=== PATIENT | female | born 1970 | race Caucasian/White ===

== ENCOUNTER 2016-06-08 11:49 | Emergency (ER) | payer MEDICARE ==
[~2016-06-08] VITALS: Ht 168.9 cm; Wt 91.6 kg
[~2016-06-08 11:49] MED LIST: ACET-2321 PO; AMAN100C65 PO; AMIT50TA95 PO; ARMO150T5 PO; ASPI-917 PO; BACL20TA71 PO; CYAN100T PO; FERR-67 PO; FOLI0.4T2 PO; MECL-38 PO; OXYC5TAB84 PO; PANT40TA32 PO; POLY17PO18 PO; SERT-77 PO; SUCR1TAB20 PO; TIZA4CAP PO; [UNRECOGNIZED DRUG - CODE] PO; [UNRECOGNIZED DRUG - CODE] PO; [UNRECOGNIZED DRUG - OTHER]; [UNRECOGNIZED DRUG - REMARK] PO
[2016-06-08 11:50] VITALS: Ht 168.9 cm; Wt 91.6 kg
--- OUTSIDE RECORDS SUMMARY | 2016-06-08 11:56 | XMS REPORT | Continuity of Care Document ---
Author Author [facility] Organization [facility] Address Unknown Phone Unavailable Care Team Providers Care Mold Stripper Name Role Phone WOJCIECH LEMONS DO Primary Care Physician [phone] Insurance Providers Guarantor Daisy Nur Address [address] [place] [address] C Email [email or web address] [facility] Policy Number [id number] Subscriber's Name Daisy Nur Relationship 18 Self Group Number [id number] Effective Date 07 Advance Directives Directive Response Recorded Date/Time Ordered Resuscitation Status Full Code 07/29/15 1:17pm Resuscitation Documents on File No 07/30/15 6:48am DPOA for Healthcare Only No 07/30/15 6:48am Problems Active Problems Medical Problem Onset Date Status Degenerative arthritis of right knee Unknown Chronic Depression Unknown Multiple sclerosis Unknown Obesity (BMI 30-39.9) Unknown Vertigo Unknown Medications Current Home Medications Medication Dose Units Route Directions Days Qty Instructions Start Date Acetaminophen (Tylenol) 325 Mg Tablet 650 Mg Oral Four Times Daily as needed for Pain 100 Tablet 07/31/15 Amantadine Hcl (Amantadine) 100 Mg Capsule 100 Mg Oral Twice A Day 08/10/08 Amitriptyline Hcl 50 Mg Tablet 50 Mg Oral Bedtime 02/19/11 Armodafinil (Nuvigil) 150 Mg Tablet 1 Tab Oral Daily 04/23/15 Aspirin (Aspirin Ec) 325 Mg Tablet. 325 Mg Oral Twice A Day 84 Tablet Take for DVT prevention 07/31/15 Baclofen 20 Mg Tablet 20 Mg Oral Bedtime 12/19/10 Caffeine 200 Mg Tablet 1 Tab Oral 112907/23/15 Carb Control Daily 07/23/15 Cyanocobalamin (Vitamin B-12) 100 Mcg Tablet 1 Tab Oral 12/28 Ferrous Sulfate (Iron Supplement) 325 Mg Tablet 1 Tab Oral Three Times A Day 04/24/15 Fingolimod Hcl (Gilenya) 0.5 Mg Capsule 0.5 Mg Oral Daily Folic Acid 0.4 Mg Tablet 1 Tab Oral 112907/23/15 Meclizine Hcl 25 Mg Tablet 25 Mg Oral Three Times A Day 08/10/08 Oxycodone Hcl 5 Mg Tablet 5-15 Mg Oral Every 3 Hours as needed for Breakthrough Pain 60 Tablet 07/31/15 Pantoprazole Sodium (Protonix) 40 Mg Tablet.dr 40 Mg Oral Daily 12/19/10 Polyethylene Glycol 3350 (Healthylax) 17 Gm Powd.pack 17 Gm Oral Daily 30 Packet 07/31/15 Sertraline Hcl (Zoloft) 100 Mg Tablet 150 Mg Oral Daily 02/19/11 Sucralfate (Carafate) 1 Gm Tablet 1 G Oral Before Meals And At Bedtime Take 1 tablet, by mouth, 4 times a day (Before EACH meal and at BEDTIME). 07/23/15 Tizanidine Hcl (Zanaflex) 4 Mg Capsule 1 Cap Oral Three Times A Day 07/23/15 Zero For Life Daily 07/23/15 Past Home Medications Medication Directions Ordered Status Acetaminophen (Tylenol Extra Strength) 500 Mg Tablet, 500 Mg Oral As Needed 08/10/08 Discontinued Amitriptyline Hcl 100 Mg Tablet, 100 Mg Oral Daily 08/10/08 Discontinued Cyclobenzaprine Hcl (Amrix) 15 Mg Cap.sr.24h, 15 Mg Oral As Needed 08/10/08 Discontinued Hydrocodone Bit/Acetaminophen (Lortab 7.5-500 Tablet) 1 Tab Tablet, 1 Tab Oral As Needed 08/10/08 Discontinued Ibuprofen 200 Mg Tablet, 200 Mg Oral As Needed 08/09/08 Discontinued Interferon Beta-1A (Avonex) 30 Mcg/0.5 Ml/Kit Syringe, 30 Mcg Intramusc Q Week 08/10/08 Discontinued Isomethept/Acetaminop/Dichlphn (Midrin) 1 Cap Capsule, 1 Cap Oral As Needed 08/10/08 Discontinued Lansoprazole (Prevacid) 30 Mg Capsule.dr, 30 Mg Oral Daily 08/10/08 Discontinued Metaxalone (Skelaxin) 800 Mg Tablet, 800 Mg Oral Daily 08/10/08 Discontinued [place]-3 Fatty Acids (Fish Oil) 500 Mg Capsule, 500 Mg Oral Daily 08/09/08 Discontinued Sertraline Hcl (Zoloft) 100 Mg Tablet, 100 Mg Oral Daily 08/10/08 Discontinued Solifenacin (Vesicare) 10 Mg Tablet, 10 Mg Oral Daily 12/19/10 Discontinued Social History Social History Problem Response Recorded Date/Time Onset Date Status Chewing Tobacco Status No 07/30/2015 6:55am Not Applicable Not Applicable Hx Substance Use No 07/30/2015 6:55am Not Applicable Not Applicable Hx Alcohol Use No 07/30/2015 6:55am Not Applicable Not Applicable Has the pt used tobacco in the last 12 months No 07/30/2015 6:55am Not Applicable Not Applicable Query Response Start Date Stop Date Smoking Status Former smoker Hospital Discharge Instructions Instructions: Care Instructions: Reason for Hospitalization: Right TKA I was in the hospital because (patient own words): knee replacement Discharge Diet: regular Discharge Activity: WBAT Follow Up Appointments: DR CHEEMA 6-8-16 @1:30PM [facility] ON 08/02/2015 AT 10:45AM FOR PHYSICAL THERAPY [facility]. PHONE [phone] Pending Lab / Results: No Pending Lab Condition at time of discharge: Good Plan of Care Discharge Date 07/31/15 4:55pm Disposition 01 DISCHARGED HOME, SELF-CARE Instructions[place] [facility] [place] Prescriptions See Medication Section Care Plan and Goals See Discharge Instructions Section Functional Status Query Response Date Recorded Mobility Status Ambulatory w/assist July 31, 2015 2:02pm Assistive Devices Front Wheeled Walker July 31, 2015 2:02pm Activity Limitations Weakness Pain July 31, 2015 2:02pm Feeding Ability Independent July 31, 2015 2:02pm Toileting Ability Independent July 31, 2015 2:02pm Grooming Ability Independent July 31, 2015 2:02pm Dressing Ability Independent July 31, 2015 2:02pm Driving Ability Independent July 31, 2015 2:02pm Housework Ability Independent July 31, 2015 2:02pm Meal Preparation Ability Independent July 31, 2015 2:02pm Stair Climbing Ability Independent July 31, 2015 2:02pm Ability to complete ADL's impeded by Impaired Mobility Change in Cognition July 31, 2015 2:02pm Cognitive/Perceptual Impairments Impaired vision July 31, 2015 2:02pm Visual Assistive Devices Glasses With patient July 30, 2015 2:52pm Preferred Method of Learning Hands on July 30, 2015 2:52pm Allergies, Adverse Reactions, Alerts Allergen Type Severity Reaction Status Last Updated Niacin Allergy Unknown HIVES Active 07/23/15 Interferon beta-1b Allergy Unknown HIVES Active 11/30/12 Immunizations Query Response on File Recorded Date/Time Hx Influenza Vaccination Y fall 201407/30/15 6:55am Hx Pneumococcal Vaccination Y 201407/30/15 6:55am Hx Influenza Vaccination Y fall 201407/30/15 6:55am Influenza Vaccine Hx fall 201507/30/15 4:02pm Vital Signs Acute Vital Signs Vital Response Date/Time Temperature (Fahrenheit) 97.2 deg F (96.8 - 99.1) 07/31/2015 12:03pm Temperature (Calculated Celsius) 36.22454 degrees C (36.0 - 37.3) 07/31/2015 12:03pm Temperature Source Temporal 07/30/2015 12:50pm Pulse Rate (adult) 86 bpm (60 - 100) 07/31/2015 12:03pm Respiratory Rate 14 breaths/min (10 - 20) 07/31/2015 12:03pm O2 Sat by Pulse Oximetry 98 % (90 - 100) 07/31/2015 12:03pm Oxygen Delivery Method Room Air 07/30/2015 4:35pm Oxygen Delivery Method Room Air 07/31/2015 12:03pm Oxygen Flow Rate 1.00 L/min 07/30/2015 12:20pm Blood Pressure 137/87 mm Hg 07/31/2015 12:03pm Blood Pressure Source Automatic Cuff 07/31/2015 12:03pm Height (Feet) 5 feet 07/31/2015 8:36am Height (Inches) 6.00 inches 07/31/2015 8:36am Weight (Kilograms) 91.500 kg 07/31/2015 8:55am Body Mass Index (BMI) 30.8 07/30/2015 6:42am Results Laboratory Results Test Name Result Units Flags Reference Collection Date/Time Result Date/ Time Comments White Blood Count 6.5 T/MM3 D 4.5-11.0 07/31/2015 4:07/31/2015 5: 05am Red Blood Count 3.88 M/MM3 L 4.00-5.20 07/31/2015 4:07/31/2015 5: 05am Hemoglobin 12.4 GM/DL 12-16 07/31/2015 4:07/31/2015 5:05am Hematocrit 37.3 % 36-46 07/31/2015 4:07/31/2015 5:05am Mean Corpuscular Volume 96.1 UM3 80-100 07/31/2015 4:07/31/2015 5: 05am Mean Corpuscular Hemoglobin 32.0 UUG 26-34 07/31/2015 4:2015 5:05am Mean Corpuscular Hemoglobin Concent 33.2 GM/DL 31-37 07/31/2015 4:07/31/2015 5:05am RDW Standard Deviation 42.6 FL 36.9-50.2 07/31/2015 4:07/31/2015 5 :05am Platelet Count 209 T/MM3 130-400 07/31/2015 4:07/31/2015 5:05am Mean Platelet Volume 9.9 UM3 9.4-12.4 07/31/2015 4:07/31/2015 5: 05am Neutrophils (%) (Auto) 74.2 % H 33-66 07/30/2015 6:5807/30/2015 7: 11am Lymphocytes (%) (Auto) 12.4 % L 23-45 07/30/2015 6:5807/30/2015 7: 11am Monocytes (%) (Auto) 10.9 % H 0-9.0 07/30/2015 6:5807/30/2015 7:11am Eosinophils (%) (Auto) 1.9 % 0-4 07/30/2015 6:5807/30/2015 7:11am Basophils (%) (Auto) 0.3 % 0-2 07/30/2015 6:58am 07/30/2015 7:11am Immature Granulocyte % (Auto) 0.3 % 0.0-0.5 07/30/2015 6:58am 2015 7:11am Absolute Neutrophils (auto) 2.4 T/MM3 1.8-7.7 07/30/2015 6:58am 2015 7:11am Absolute Lymphocytes (auto) 0.4 T/MM3 L 1-4.8 07/30/2015 6:58am 2015 7:11am Absolute Monocytes (auto) 0.4 T/MM3 0-0.8 07/30/2015 6:58am 07/30/2015 7:11am Absolute Eosinophils (auto) 0.1 T/MM3 0-0.5 07/30/2015 6:58am 2015 7:11am Absolute Basophils (auto) 0.0 T/MM3 0-0.2 07/30/2015 6:58am 07/30/2015 7:11am Absolute Immature Granulocyte (auto 0.01 T/MM3 0.00-0.03 07/30/2015 6: 58am 07/30/2015 7:11am Icterus Index < 2 0-7 07/31/2015 4:07/31/2015 5:03am Chemistry Specimen Hemolysis < 15 0-25 07/31/2015 4:07/31/2015 5 :03am 0-25: Specimen Exhibited No Hemolysis. Turbidity < 20 0-20 07/31/2015 4:07/31/2015 5:03am Sodium Level 141 MEQ/L 134-144 07/31/2015 4:07/31/2015 5:03am Potassium Level 3.4 MEQ/L L 3.6-5 07/31/2015 4:07/31/2015 5:03am Chloride Level 105 MEQ/L 98-107 07/31/2015 4:07/31/2015 5:03am Carbon Dioxide Level 27 MEQ/L 22-30 07/31/2015 4:07/31/2015 5: 03am Anion Gap 9 MEQ/L 5-15 07/31/2015 4:07/31/2015 5:03am Blood Urea Nitrogen 11.0 MG/DL 7-17 07/31/2015 4:07/31/2015 5: 03am Creatinine 0.6 MG/DL L 0.7-1.2 07/31/2015 4:07/31/2015 5:03am BUN/Creatinine Ratio 18 RATIO 6-26 07/31/2015 4:21am 07/31/2015 5:03am Glomerular Filtration Rate Calc 108 07/31/2015 4:21am 07/31/2015 5: 03am Glucose Level 101 MG/DL 65-110 07/31/2015 4:21am 07/31/2015 5:03am Calculated Osmolality 270 MOSM/KG 261-280 07/31/2015 4:21am 07/31/2015 5:03am Calcium Level 8.7 MG/DL 8.4-10.2 07/31/2015 4:21am 07/31/2015 5:04am Name: DAISY NUR Unit #: [id number] : 1970 Sex: F Admit Date: 07/30/15 Loc / Svc: SRG Discharge Date: DIAGNOSTIC IMAGING REPORT Report #: [id number] [place], [place] Indication: ITS.REASON: POSTOP right knee replacement PROCEDURE: KNEE RIGHT 2 VIEW: Encounter: Initial Comparison: Right knee radiographs dated December 04, 2011 Findings: Postoperative changes of right total knee replacement are seen. There is expected postoperative subcutaneous gas. No evidence of hardware failure or acute fracture. No retained radiopaque surgical instruments or sponges. Overlying material causing artifact. Impression: New right total knee prosthesis without evidence of immediate complication. . Procedures Procedure Status Date Provider(s) CHEST X-RAY 2VW FRONTAL&LATL Completed 07/10/15 Total replacement of right knee joint Completed 07/30/15 KILLIAN CHEEMA MD Encounters Encounter Location Arrival/Admit Date Discharge/Depart Date Attending Provider Discharged Inpatient [facility] 07/30/15 6:28am 07/31/15 4:55pm KILLIAN CHEEMA MD Registered Clinic [facility] 07/10/15 2:50pm WOJCIECH LEMONS DO
--- NOTE | 2016-06-08 12:30 | NUR ---
PROVIDER DR Bernice ARRINGTON IN TO SEE PATIENT.
[2016-06-08] MEDS ORDERED: GARL500T PO (12:35)
[2016-06-08] MEDS ORDERED: ASCO10007 PO (12:35)
[2016-06-08] MEDS ORDERED: [UNRECOGNIZED DRUG - OTHER] PO (12:35)
--- NOTE | 2016-06-08 12:36 | ERPDOC ---
Departure Disposition Decision Date: Jun 08, 2016 Disposition Decision Time: 13:08 (JEAN BARROW APRN) Disposition: 01 DISCHARGED HOME, SELF-CARE Impression Impression (JEAN BARROW APRN) Impression: Primary Impression: Displaced fracture of phalanx of right little finger Encounter type: initial encounter Fracture type: closed Phalanx: proximal Qualified Codes: S62.616A - Displaced fracture of proximal phalanx of right little finger, initial encounter for closed fracture Severity: Moderate (JEAN BARROW APRN) Condition: Stable Seen By: Mid-level only (JEAN BARROW APRN) Seen By: Physician and Mid-level (PRINCE ARRINGTON MD) Referrals: WOJCIECH LEMONS DO (Family) Patient Instructions: Finger Fracture (ED) Problems/Meds/Labs Reviewed?: Yes Medications reviewed and manag: Yes (JEAN BARROW APRN) Additional Instructions: Keep the finger splint on and continue to devyn tape your finger until you follow up with Dr Bell on WednesdayJune 10 at 11:00 am. Ice and elevate the fingers. May use Tylenol and/or Motrin as needed for mild pain or the [place] as needed for severe pain. Follow up care ordered?: Yes Mental Status: Alert (JEAN BARROW APRN) Scripts Hydrocodone/Acetaminophen ([place] 5-325 Tablet) 5-325 Tablet 1 TAB PO Q6H Y for PAIN, #10 TAB 0 Refills Prov: JEAN BARROW APRN 06/08/16 HPI General Chief Complaint: Lower Extremity Injury Stated Complaint: POSS BROKEN FINGERS/HAND ( RIGHT) Time Seen by Provider: 12:30 Source: patient Exam Limitations: no limitations (JEAN BARROW APRN) Time Seen by Provider: 12:30 (PRINCE ARRINGTON MD) HPI Hand/Forearm Initial Comments She fell this morning and hyperflexed the right 4th and 5th fingers at the MCP joint on the right hand. She has pain and bruising on the right 4th and 5th MCP joints. She denies any numbness/tingling in the right finger tips. No history of injury. Has devyn taped her 4th and 5th digits together. Occurred At: home Onset: Rapid Duration: 1-3 hrs Severity: moderate Location: right: 4th finger, 5th finger, hand 1 - area of pain 2 - area of pain Method of Injury: fell Associated Symptoms: pain with extension, pain with flexion, pain with grasp, DENIES: bruising, numbness, pallor, red streaks, redness, swelling, weakness ( NOLD,JEAN N GRADER OPERATOR) Allergies: Coded Allergies: interferon beta-1b (Verified Allergy, Unknown, HIVES, 06/08/16) niacin (Unverified Allergy, Unknown, HIVES, 06/08/16) PER H&P DATED 07/09/15 Past History Past Medical History Female: kidney stones Neurological: multiple sclerosis Hematologic: anemia Psychological: depression (NOLD,JEAN N GRADER OPERATOR) Surgical History General: EGD, tonsils Reproductive/: tubal ligation Joint: knee (NOLD,JEAN N GRADER OPERATOR) Family History Family History: Negative (NOLD,JEAN N GRADER OPERATOR) Vaccines Hx Influenza Vaccination: Yes (FALL 2014) Hx Pneumococcal Vaccination: Yes (2014) (NOLD,JEAN N GRADER OPERATOR) Social History # of Packs/Tins per Day: 1 # of Years: 20 IV Drug Use: No (NOLD,JEAN N GRADER OPERATOR) Review of Systems Constitutional Constitutional: DENIES: chills, dizziness, fatigue, fever, weakness (NOLD, JEAN N GRADER OPERATOR) Musculoskeletal General: pain (right 4th and 5th fingers and right 4th and 5th MCP joints) ( NOLD,JEAN N GRADER OPERATOR) Integumentary Skin: DENIES: rash (NOLD,JEAN N GRADER OPERATOR) Neurological General: DENIES: headache, numbness, tingling, weakness (NOLD,JEAN N GRADER OPERATOR) Exam General General Nourishment: well nourished, well developed, appears stated age, no acute distress, adult General Body Habitus: well groomed Vital Signs: RN Vital Signs have been reviewed: Yes, Temperature: 97.8, Source : Oral, Heart Rate: 83, Respiratory Rate: 18, BP: 134/87, Pulse Oximetry: 98 Height (Feet): 5 Height (Inches): 6.50 (NOLD,JEAN N GRADER OPERATOR) Fastrak Hand/Forearm Hand/Forearm : Upper Extremity: Right Elbow: extension intact, flexion intact, NOT FOUND: deformity, ecchymosis, erythema, swelling, tender Forearm: pronation intact, supination intact, NOT FOUND: deformity, ecchymosis, erythema, laceration, swelling, tender Wrist: ROM intact, NOT FOUND: deformity, ecchymosis, erythema, snuff box tenderness, swelling, tender, thenar eminence tender Hand: ecchymosis (on palmar surface of the right hand over the 4th and 5th MCP joint), swelling (4th and 5th fingers), tender (MCP joints-4th and 5th, and 4th and 5th fingers), NOT FOUND: deformity, erythema Fingers: cap refill <2sec ea digit, ecchymosis (4th and 5th digits), impaired abduction, impaired adduction, impaired flexion, impaired grasp, soft touch intact, swelling, tender, NOT FOUND: deformity, erythema, impaired extension, laceration, nail avulsion, rotational deformity Radial Pulse: 2+ (JEAN BARROW APRN) Hand/Forearm : Comments right hand -- pt has 4th and 5th fingers devyn taped. There is swelling and ecchymosis of the proximal 4th/5th fingers extending up onto the distal hand. (PRINCE ARRINGTON MD) Neurologic RN Documented GCS Eye Opening: Verbal: Motor: Total: (JEAN BARROW APRN) Differential Diagnoses Considering: Contusion, Dislocation, Fracture, Sprain, Strain (JEAN BARROW APRN) Procedures Splinting Procedure Splint : Site: right pinky finger Pre-placement NV: FOUND: cap refill < 3 sec, good movement, good sensation Pre-Made Type: metal Splint: volar aluminum finger splint Post-placement NV: FOUND: cap refill < 3 sec, good sensation, NOT FOUND: good movement (due to splinting) Applied by: RN (JEAN BARROW APRN) Progress Results/Orders Orders Procedure Category Date Status Time Hand Right 3 View RAD 06/08/16 Resulted (PRINCE ARRINGTON MD) Progress Progress Xray does show a fracture. Did speak with Dr Bell about findings. He will see her in follow up on WednesdayJune 10 at 11:00am. Will have her ice and elevate. Devyn tape the fingers together and also wear an aluminum fingers splint with mild flexion at the MCP joint. (JEAN BARROW APRN) Progress Patient' history and exam reviewed, hand briefly examined. Xrays and report reviewed. Agree with consulting ortho and with care given. (PRINCE ARRINGTON MD) Xray Xray : Reason for Exam: right finger injury Xray: Hand R Interpretation: Abnormal (right proximal phalanx fracture on right 5th digit ) (JEAN BARROW APRN) Xray : Xray: Hand R Interpretation: Abnormal (right proximal phalanx fracture on right 5th digit ), Reviewed Written Report (PRINCE ARRINGTON MD) JEAN BARROW APRN Jun 08, 2016 12:36 PRINCE ARRINGTON MD Jun 08, 2016 14:06
--- NOTE | 2016-06-08 12:40 | NUR ---
XRAY PORTABLE BEING DONE IN ROOM AT THIS TIME.
--- NOTE | 2016-06-08 12:57 | DI ---
Indication: ITS.REASON: right hand pain PROCEDURE: HAND RIGHT 3 VIEW: Encounter: Initial Comparison: None Findings: There is a more or less an oblique fracture of the proximal metaphysis of the proximal phalanx of the right fifth digit without definitive intra-articular extension and very minimal distraction of the fracture fragments. No gross malalignment noted. No additional fracture clearly apparent. Interphalangeal degenerative changes noted. Impression: Grossly nondisplaced fracture of the proximal metaphysis of the proximal phalanx of the right fifth digit. .
--- NOTE | 2016-06-08 13:00 | NUR ---
PROVIDER Nahum BARROW CLAMSHELL OPERATOR IN TO SEE PATIENT.
[2016-06-08] MEDS ORDERED: HYDR-4246 PO (13:10)
--- NOTE | 2016-06-08 13:15 | NUR ---
PROVIDER Nahum BARROW CATTLE TESTER IN TO SEE PATIENT.
[2016-06-08 13:35] VITALS: BP 134/87; PULSE 83; RESP 18; TEMP 97.8; O2SAT 98
== END 2016-06-08 13:35 | disposition home or self-care (01) ==
LOC: ED 11:49
DX: S62.616A Displaced fracture of proximal phalanx of right little finger, initial encounter for closed fracture (principal); W19.XXXA Unspecified fall, initial encounter; Y93.9 Activity, unspecified; Y92.009 Unspecified place in unspecified non-institutional (private) residence as the place of occurrence of the external cause; Y99.8 Other external cause status

== ENCOUNTER → 2016-07-13 | Outpatient (CLI) | payer MEDICARE ==
[~2016-07-13] MED LIST changes: -ACET-2321 PO; +ASCO10007 PO; -ASPI-917 PO; +GADOBUTROL 10mMol/10ml INJECTION IV ONE; +GARL500T PO; +HYDR-4246 PO; -OXYC5TAB84 PO; -POLY17PO18 PO; +SALINE FLUSH 10ml SYRINGE ONE; -SUCR1TAB20 PO; -[UNRECOGNIZED DRUG - CODE] PO; -[UNRECOGNIZED DRUG - CODE] PO; -[UNRECOGNIZED DRUG - OTHER]; +[UNRECOGNIZED DRUG - OTHER] PO
--- NOTE | 2016-07-14 08:52 | DI ---
Indication: ITS.REASON: G35 Multiple sclerosis PROCEDURE: MRI BRAIN W/WO CONTRAST: Encounter: Initial Comparisons: April 02, 2016 Technique: Multiplanar, multisequence, MR imaging of the head with and without contrast was acquired. Contrast: 9 mL of Gadavist FINDINGS: The ventricles are of normal size, shape, and contour for the patient's age. Interval development of multiple enhancing lesions. There is a large ring enhancing lesion in the left anterior frontal lobe with surrounding edema measuring 1.6 cm in diameter on axial image #21. There is also a ring-enhancing lesion in the right frontal lobe on the same image measuring 0.8 cm in diameter with surrounding edema. Additional scattered ring enhancing foci are seen in both frontal and parietal lobes. Lesion in the right frontal lobe on image #18 measures 1.2 cm in diameter. Smaller right parietal lesion on image #17 measures 0.6 cm in diameter. Left parietal lesion on image #16 measures 1.5 cm in diameter. A high left parietal lesion on image #21 measuring 0.7 cm in diameter. High right frontal lesion on image #23 measuring 0.7 cm in diameter. These lesions have varying degrees of surrounding vasogenic edema which is superimposed upon a background of existing white matter lesions seen on the comparison. The visualized portions of the orbits, calvarium, paranasal sinuses, and skull base demonstrate no significant abnormality. No acute intracranial hemorrhage seen. IMPRESSION: Numerous new enhancing lesions in both frontal and parietal lobes with an appearance most consistent with active demyelinating lesions given the patient's history of multiple sclerosis. Atypical infection and metastatic disease could have a similar appearance but are felt to be less likely this patient. .
== END ==
LOC: IMA 15:53
PROVIDERS: ATTEND Psychiatry & Neurology Neurology
DX: G35 Multiple sclerosis (principal)
CPT/HCPCS: 70553; A9585